=== PATIENT | female | born 1955 | race Caucasian/White ===

== ENCOUNTER 2017-04-02 21:52 | Inpatient (IN) | payer OTHER ==
[~2017-04-02] VITALS: Ht 162.6 cm; Wt 78.0 kg
[~2017-04-02 21:52] MED LIST: ADULT ASPIRIN81 MG PO; AGGRENOX1 CAP PO; ASPIRIN-DIPYRI1 EACH PO; CALCIUM 600 +1 EA12 PO; CALCIUM 600 W/V1 TAB; CALCIUM W/VIT D1 TA; CELEBREX200 M1 PO; CELEBREX200 MG; CELEBREX200 MG PO; CLONAZEPAM0.5 MG PO; COLACE-T100 MG; CRESTOR10 MG PO; CRESTOR5 MG PO; CYMBALTA60 M1 PO; ESTROGEL93 GM; KEPPRA500 M1 PO; KEPPRA750 M2 PO; LIPITOR40 M1 PO; MULTIVITAMIN1 TAB; NEXIUM40 MG; OMEPRAZOLE20 M2 PO; OMEPRAZOLE20 M3 PO; PHENOBARBITAL64.8 M1 PO; PHENOBARBITAL64.8 MG; PHENOBARBITAL64.8 MG PO; SKELAXIN800 MG PO; VALIUM10 MG PO; VITAMIN D1000 UNIT PO; VITAMIN D31000 UNI3 PO; ZANAFLEX2 M PO; ZANAFLEX4 M PO; ZANAFLEX4 MG PO
[2017-04-02 22:24] LABS: BASO % 0.5 % (0-2); EOS % 6.4 % (0-7); EOSINOPHIL ABSOLUTE COUNT 0.5 tho/cmm (0.0-0.7); HCT-HEMATOCRIT 39.2 % (34.0-49.0); HGB-HEMOGLOBIN 13.5 gm/dl (12.0-15.5); IMMATURE GRANULOCYTES ABSOLUTE 0.01 tho/cmm (0-0.03); IMMATURE GRANULOCYTES PERCENT 0.1 % (0-0.3); LYMPH % 20.7 % (20-45); LYMPH ABSOLUTE COUNT 1.7 tho/cmm (0.8-4.5); MCH (MEAN CORPUSCULAR HGB) 31.5 pg (28.0-32.0); MCHC MEAN CORPUSCULAR HGB CONC 34.4 % (32.0-36.0); MCV (MEAN CELL VOLUME) 91.6 fl (82.0-96.0); MEAN PLATELET VOLUME 9.5 cmc (9.4-12.4); MONO % 8.5 % (0-12); MONOCYTE ABSOLUTE COUNT 0.7 tho/cmm (0.0-1.2); NEUTROPHIL ABSOLUTE COUNT 5.1 tho/cmm (1.6-8.0); NEUTROPHIL-AUTOMATED 5.1 tho/cmm (1.6-8.0); NEUTROPHILS % 63.8 % (40-80); PLATELET COUNT 241 tho/cmm (150-450); RED BLOOD COUNT 4.28 mil/cmm (4.00-5.20); RED CELL DISTRIBUTION WIDTH 12.8 % (12.4-16.4)
[2017-04-02 22:32] LABS: ANION GAP 9 mmol/L (0-20); BLOOD UREA NITROGEN 13 mg/dl (6-24); CALCIUM 9.3 mg/dl (8.5-10.5); CARBON DIOXIDE-VENOUS 30 mmol/L (22-32); CHLORIDE 104 mmol/l (96-110); CREATININE 0.82 mg/dl (0.50-1.10); GLUCOSE 113 mg/dL (70-110); SODIUM 139 mmol/L (135-145); eGFR VALUE FOR BLACK 89 mL/Min
[2017-04-02 22:35] LABS: POTASSIUM 3.6 mmol/L (3.7-5.1)
[2017-04-02 23:14] LABS: INR 0.9 INR (0.9-1.1); PROTHROMBIN TIME 10.2 SECONDS (9.0-13.6)
[2017-04-03 05:24] LABS: BASO % 0.1 % (0-2); EOS % 0.7 % (0-7); EOSINOPHIL ABSOLUTE COUNT 0.1 tho/cmm (0.0-0.7); HCT-HEMATOCRIT 37.7 % (34.0-49.0); HGB-HEMOGLOBIN 12.5 gm/dl (12.0-15.5); IMMATURE GRANULOCYTES ABSOLUTE 0.01 tho/cmm (0-0.03); IMMATURE GRANULOCYTES PERCENT 0.1 % (0-0.3); LYMPH % 8.1 % (20-45); LYMPH ABSOLUTE COUNT 0.6 tho/cmm (0.8-4.5); MCH (MEAN CORPUSCULAR HGB) 30.9 pg (28.0-32.0); MCHC MEAN CORPUSCULAR HGB CONC 33.2 % (32.0-36.0); MCV (MEAN CELL VOLUME) 93.1 fl (82.0-96.0); MEAN PLATELET VOLUME 9.4 cmc (9.4-12.4); MONO % 3.3 % (0-12); MONOCYTE ABSOLUTE COUNT 0.2 tho/cmm (0.0-1.2); NEUTROPHIL ABSOLUTE COUNT 6.1 tho/cmm (1.6-8.0); NEUTROPHIL-AUTOMATED 6.1 tho/cmm (1.6-8.0); NEUTROPHILS % 87.7 % (40-80); PLATELET COUNT 188 tho/cmm (150-450); RED BLOOD COUNT 4.05 mil/cmm (4.00-5.20); WHITE BLOOD COUNT 6.9 tho/cmm (4.0-10.0)
[2017-04-03 05:38] LABS: ALBUMIN 3.4 g/dl (3.5-5.0); ALKALINE PHOSPHATASE 55 U/L (33-138); ALT/SGPT 30 U/L (12-78); ANION GAP 12 mmol/L (0-20); AST/SGOT 17 U/L (10-40); BILIRUBIN,TOTAL 0.2 mg/dl (0-1.5); BLOOD UREA NITROGEN 11 mg/dl (6-24); CALCIUM 8.7 mg/dl (8.5-10.5); CARBON DIOXIDE-VENOUS 27 mmol/L (22-32); CHLORIDE 107 mmol/l (96-110); CREATININE 0.91 mg/dl (0.50-1.10); GLUCOSE 138 mg/dL (70-110); POTASSIUM 3.7 mmol/L (3.7-5.1); SODIUM 142 mmol/L (135-145); eGFR VALUE FOR BLACK 78 mL/Min
[2017-04-03] MEDS ORDERED: PHENOBARBITAL64.8 M1 PO (11:23)
== END 2017-04-06 10:15 | DRG 64 ==
LOC: EDMED 21:52 → EMR2 04-03 00:03 → CCU 04-03 00:03 → PACU 04-03 01:54 → CCU 04-03 02:31
PROVIDERS: Emergency Medicine; Neurological Surgery; ADMIT Hospitalist
PROC: [UNRECOGNIZED PROCEDURE] (principal; 2017-04-03)
DX: I62.00 Nontraumatic subdural hemorrhage, unspecified (principal); G93.5 Compression of brain; G40.909 Epilepsy, unspecified, not intractable, without status epilepticus; K21.9 Gastro-esophageal reflux disease without esophagitis; K58.9 Irritable bowel syndrome, unspecified; Z86.73 Personal history of transient ischemic attack (TIA), and cerebral infarction without residual deficits
CPT/HCPCS: G8987-GO-CH; G8988-GO-CH; G8989-GO-CH; J0690; J0780; J1200; J7030